=== PATIENT | male | born 1975 | race Caucasian/White ===

== ENCOUNTER 2019-10-23 13:11 | Outpatient (CLI) | payer OTHER, SELFPAY ==
--- NOTE | 2019-10-23 | USCV_ITS ---
Gilbert Eric Age: 44 Gender: M : 1975 Exam Date: 10/23/2019 15:53 Ordering Phys: Luke Cota MD Technologist: Hernandez Menezes [place] [facility] [facility] [place]ication: DIZZY Risk Factors: None Previous Vascular Surgery: None Right Brachial BP: / Left Brachial BP: / Right Left Velocity (cm/s) Spectral Plaque Velocity (cm/s) Spectral Plaque Syst/Diast Broadening Syst/Diast Broadening 67.30/ 16.50 Prox CCA 67.30 / 16.50 68.40/ 16.50 Mid CCA 60.60 / 13.20 59.50/ 15.40 Distal CCA 65.10 / 14.30 71.70/ 25.40 Prox ICA 62.80 / 22.10 70.60/ 22.10 Mid ICA 71.70 / 25.40 77.20/ 27.60 Distal ICA 66.20 / 19.80 91.50 ECA 66.20 1.13 ICA/CCA 1.07 Antegrade Vertebral Antegrade 33.80/ 6.80 cm/s 33.10/ 9.90 cm/s Tri Subclavian Tri 87.10 122.4 0 FINDINGS Comparison: none available. No significant elevation of systolic or diastolic velocities. Waveforms are normal. No significant amount of calcified plaque or intimal thickening identified. CONCLUSIONS Normal carotid doppler ultrasound. Dr. Miladys Loyola DO (Electronically Signed) Final Date: 24 October 2019 07:57 S
== END 2019-10-23 13:12 | disposition home or self-care (01) ==
LOC: RAD 13:16
PROVIDERS: PCP Family Medicine; Visit Provider Family Medicine
DX: I10 Essential (primary) hypertension (principal); I51.7 Cardiomegaly; R42 Dizziness and giddiness
CPT/HCPCS: 93880

== ENCOUNTER 2019-10-25 09:00 | Outpatient (CLI) | payer OTHER, SELFPAY ==
--- NOTE | 2019-10-25 13:43 | USCV_ITS ---
Gilbert Eric Age: 44 Gender: M : 1975 Exam Date: 10/25/2019 13:44 Ordering Phys: Luke Cota MD Technologist: Hernandez Menezes Exam Location: [facility] – [place] Indication: HNT HTN BP: 120 / 80 HR: 60 Rhythm: Sinus Technical Quality: Good MEASUREMENTS (Male / Female) Normal Values 2D ECHO LV Diastolic Diameter PLAX 4.8 cm 4.2 - 5.9 / 3.9 - 5.3 cm LV Systolic Diameter PLAX 4.0 cm IVS Diastolic Thickness 1.2 cm 0.6 - 1.0 / 0.6 - 0.9 cm IVS Systolic Thickness 1.3 cm LVPW Diastolic Thickness 1.2 cm 0.6 - 1.0 / 0.6 - 0.9 cm LVPW Systolic Thickness 1.2 cm LVOT Diameter 2.0 cm LV Ejection Fraction 2D Teich 33.7 % LV Ejection Fraction MOD 2C 66.6 % LV Ejection Fraction 2C AL 69.0 % LA Diameter 3.8 cm Aorta at Sinotubular Diameter 2.8 cm M-MODE LV Diastolic Diameter MM 5.3 cm 4.2 - 5.9 / 3.9 - 5.3 cm LV Systolic Diameter MM 3.3 cm LV Ejection Fraction MM Teich 67.6 % IVS Diastolic Thickness MM 1.0 cm 0.6 - 1.0 / 0.6 - 0.9 cm IVS Systolic Thickness MM 1.3 cm LVPW Diastolic Thickness MM 1.0 cm 0.6 - 1.0 / 0.6 - 0.9 cm LVPW Systolic Thickness MM 1.8 cm RV Diastolic Diameter MM 2.6 cm Aortic Annulus Diameter 3.6 cm LA Ao Ratio MM 1.0 MV E Point Septal Separation 1.6 cm DOPPLER AV Peak Velocity 121.0 cm/s LVOT Peak Velocity 94.0 cm/s AV Area Cont Eq vti 2.5 cm squared AV Area Cont Eq pk 2.6 cm squared MV E' Velocity 10.0 cm/s TR Peak Velocity 239.0 cm/s TR Peak Gradient 22.8 mmHg Right Atrial Pressure 3.0 mmHg Pulmonary Artery Systolic Pressu 25.8 mmHg PV Peak Velocity 94.0 cm/s FINDINGS Left Ventricle Normal left ventricular size and systolic function, EF 62 %. Mild left ventricular hypertrophy. No regional wall motion abnormalities. Right Ventricle The right ventricle is normal in size and function. Right Atrium The right atrium is normal in size. Left Atrium The left atrium is normal in size. Mitral Valve Structurally normal mitral valve without significant stenosis or prolapse. There is no mitral regurgitation. Aortic Valve Structurally normal aortic valve without significant sclerosis or stenosis. There is no aortic regurgitation. Tricuspid Valve Structurally normal tricuspid valve without significant stenosis or regurgitation. Pulmonary artery systolic pressure is normal. Pulmonic Valve Structurally normal pulmonic valve without significant stenosis. There is no pulmonic regurgitation. Pericardium Normal pericardium without effusion. Aorta Normal ascending aorta dimension. CONCLUSIONS Normal left ventricular size and systolic function, EF 62 %. Mild left ventricular hypertrophy. No regional wall motion abnormalities. No significant stenotic or regurgitant lesions No intracardiac shunt by color-flow Doppler examination There is no pericardial effusion. There are no intracardiac masses. No previous study is available for comparison. Dr Toma Davey MD FAC (Electronically Signed) Final Date: 26 October 2019 20:01 S MTDD
== END 2019-10-25 09:01 | disposition home or self-care (01) ==
LOC: RAD 10-28 12:28
PROVIDERS: PCP Family Medicine; Visit Provider Family Medicine
DX: I10 Essential (primary) hypertension (principal)
CPT/HCPCS: 93306

== ENCOUNTER 2020-03-09 07:21 | Emergency (ER) | payer OTHER, SELFPAY ==
[2020-03-09 07:22] VITALS: BP 127/87; PULSE 63; RESP 16; TEMP 36.8; O2SAT 98; BMI 25.7
--- NOTE | 2020-03-09 07:24 | ECG_ITS ---
[facility] Test Date: 2020-03-09 Pat Name: Eric Hunt Department: Room: Gender: Male Guest Experience Captain: : 1975 Requested By: Maximo Perez Order Number: [id number] Esposito MD: Eric Benedict M.D. Measurements Intervals [place] Rate: 57 P: 1 IL: 128 QRS: 30 QRSD: 94 T: 4 QT: 428 QTc: 418 Interpretive Statements SINUS BRADYCARDIA No previous ECG available for comparison Electronically Signed On 03-09-2020 16:39:33 CDT by Eric Benedict M.D. [id number]
--- NOTE | 2020-03-09 07:24 | W.ED.SYNCOPE ---
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 Was witnessed by the nurses who states that he went flaccid and had some jerking movements with sounds like he had a syncopal event. He states he has had this happen half a dozen or so times in the past. He is unsure what is causing. He denies any chest pain or headache. He denies any worsening improving factors. Associated symptoms: Deny abdominal pain, fever(s), headache(s) or nausea Review of Systems Const: Denies: fever(s), chills, body aches or change in appetite Eyes: Denies: blurry vision or eye discomfort ENMT: Denies: throat pain or dental pain Card: Reports: syncope Resp: Denies: dyspnea GI: Denies: abdominal pain, nausea, vomiting or diarrhea : Denies: dysuria Musc: Denies: neck pain or back pain Skin/Breast: Denies: rash Neuro: Denies: headache(s) Psych: Denies: depression Cedric/Lymph: Denies: easy bruising All/Imm: Denies: urticaria Physical Exam Const: COMMON NORMALS: no acute distress, patient oriented x3 and healthy appearing HENMT: COMMON NORMALS: normocephalic and atraumatic HEAD & SCALP: normocephalic and atraumatic Eye: COMMON NORMALS: Equal, round and reactive pupils present and EOMs intact bilaterally PUPIL: Yes Equal, round and reactive pupils present Neck/C-Spine: COMMON NORMALS: full ROM and supple Chest: COMMONS NORMALS: normal inspection of the chest and normal palpation of entire chest wall Resp: COMMON NORMALS: normal respiratory effort, No retractions, No use of accessory muscles and clear to auscultation bilaterally AUSCULTATION: clear to auscultation bilaterally Cardio: COMMON NORMALS: regular rate, regular rhythm and No murmurs present (Cardio) RATE: regular rate RHYTHM: regular rhythm GI: COMMON NORMALS: Normal to inspection, nondistended, normoactive bowel sounds present, Soft to palpation, non-tender and no masses PALPATION: Yes Soft to palpation Extremity: COMMON NORMALS: normal to inspection and full ROM Neuro: COMMON NORMALS: patient oriented x3, moves all extremities and no focal motor deficits Psych: COMMON NORMALS: mental status grossly normal, Normal thought process present and cooperative THOUGHT PROCESS: Normal thought process present Skin: COMMON NORMALS: no rashes or lesions noted and no wounds GENERAL SKIN EXAM: no rashes or lesions noted Course Vital Signs: Vital signs: Vital Signs Temperature 98.3 F 03/09/20 07:22 Pulse Rate 60 03/09/20 08:40 Respiratory Rate 14 03/09/20 08:40 Blood Pressure 111/79 03/09/20 08:40 Pulse Oximetry 97 03/09/20 08:40 MDM - Syncope MDM Narrative: Medical decision making narrative: Eric presents here with a likely syncopal event. Patient has no signs of a seizure. Patient's CT head and lab work here is all normal. Patient is stable for discharge and is to follow-up with primary care doctor in 3 to 5 days return if worsening. Lab Data: Labs: Lab Results 03/09/20 03/09/20 Range/Units 07:35 07:35 WBC 7.4 (4.0-10.0) 10^3/ uL RBC 4.66 (4.1-5.3) 10^6/u L Hgb 13.8 (11.7-16.6) g/dL Hct 43.6 (42.0-52.0) % MCV 93.6 (80-94) fL MCH 29.6 (28.0-34.0) pg MCHC 31.7 (30.0-36.0) g/dL RDW 12.1 (12.1-15.1) % Plt Count 234 (130-400) 10^3/c mm MPV 9.8 (7.4-10.4) fL Neut % (Auto) 44.5 % Lymph % (Auto) 45.4 % Pierce % (Auto) 5.8 % Eos % (Auto) 3.5 % Baso % (Auto) 0.5 % Neut # (Auto) 3.30 (1.8-7.7) 10^3/u L Lymph # (Auto) 3.4 (0.8-4.8) 10^3/u L Pierce # (Auto) 0.4 (0.2-0.9) 10^3/u L Eos # (Auto) 0.3 (0.0-0.8) 10^3/u L Baso # (Auto) 0.0 (0.0-0.1) 10^3/u L Nucleated RBC % (a uto) 0 % Nucleated RBCs # 0.0 /100WBC Sodium 141 (136-145) mmol/L Potassium 3.9 (3.5-5.1) mmol/L Chloride 106 (98-107) mmol/L Carbon Dioxide 27 (22-29) mmol/L Anion Gap 11.9 (5-19) BUN 16 (6-20) mg/dL Creatinine 0.9 (0.7-1.2) mg/dL GFR Calculation 90.8 (90-130) mL/min Glucose 134 H (65-115) mg/dL Calculated Osmolal ity 290 (285-295) mOsm/k g Calcium 9.7 (8.5-10.5) mg/dL Total Bilirubin 0.4 (0.15-1.2) mg/dL AST 24 (0-40) U/L ALT 23 (0-41) U/L Alkaline Phosphata se 53 (40-130) IU/L Total Protein 7.1 (6.6-8.7) g/dL Albumin 4.9 (3.5-5.2) g/dL Globulin 2.2 (1.3-4.6) g/dL Imaging Data^: CT Head: Radiologist's impression: [place] [address] CT Scan Report Signed Patient: Eric Hunt Unit #: [id number] : 1975 Age/Sex: 44 / M ADM Date: 03/09/20 Loc: ER Room/Bed: Attending Dr: Ordering Provider/Ordering MD: Maximo Perez MD Date of Service: 03/09/20 Procedure(s): CT head wo con* [id number] Accession Number(s): [id number] Report Number: [id number] PROCEDURE INFORMATION: Exam: CT Head Without Contrast Exam date and time: 03/09/2020 7:25 AM Age: 44 years old Clinical indication: Syncope and collapse TECHNIQUE: Imaging protocol: Computed tomography of the head without contrast. Radiation optimization: All CT scans at this facility use at least one of these dose optimization techniques: automated exposure control; mA and/or kV adjustment per patient size (includes targeted exams where dose is matched to clinical indication); or iterative reconstruction. COMPARISON: No relevant prior studies available. RADIATION DOSE METRICS: Total DLP (mGy-cm): 839.33 FINDINGS: Brain: No hemorrhage. No edema, mass effect or midline shift. Ventricles: No ventriculomegaly. Bones/joints: No acute fracture. Sinuses: No acute sinusitis. Mastoid air cells: No mastoid effusion. Soft tissues: Unremarkable. CT/CT head wo con* [id number] IMPRESSION: No acute intracranial abnormality. EKG Data^: EKG 1: Attestation: I personally reviewed and interpreted this EKG as follows: EKG interpretation date: 03/09/20 EKG interpretation time: 07:37 Interpretation: sinus winnie hr [address] or t wave abnormalities qrs 94 qtc 422 Discharge Plan Discharge Patient Disposition: Home, Self-Care Clinical Impression: Syncope Qualifiers: Syncope type: unspecified Qualified Code(s): R55 - Syncope and collapse Condition: Stable Prescriptions: No Action No Known Home Medications RF: 0 Discharge Orders: Discharge Order (Routine); Ordered 03/09/20 Ordered By: Maximo Perez Referrals: Luke Cota MD [Primary Care Provider] - 1-3 days Discharge Diet: Advance as tolerated Discharge Activity: Resume usual activity Patient Instructions: Syncope (ED) Discharge Date/Time: 03/09/20 08:41 Coding Level of Care Code ED Vice President Business Development for Chg Fwd Exam Comprehensive
[2020-03-09 07:40] LABS: Basophils % 0.5 %; Eosinophils # 0.3 10^3/uL (0.0-0.8); Eosinophils % 3.5 %; Hematocrit 43.6 % (42.0-52.0); Hemoglobin 13.8 g/dL (11.7-16.6); Lymphocytes # 3.4 10^3/uL (0.8-4.8); Lymphocytes % 45.4 %; Mean Corpuscular HGB Conc 31.7 g/dL (30.0-36.0); Mean Corpuscular Hemoglobin 29.6 pg (28.0-34.0); Mean Corpuscular Volume 93.6 fL (80-94); Mean Platelet Volume 9.8 fL (7.4-10.4); Monocytes # 0.4 10^3/uL (0.2-0.9); Monocytes % 5.8 %; Neutrophils % 44.5 %; Nucleated Red Blood Cells % 0 %; Platelet Count 234 10^3/cmm (130-400); Red Blood Count 4.66 10^6/uL (4.1-5.3); Red Cell Distribution Width 12.1 % (12.1-15.1); White Blood Count 7.4 10^3/uL (4.0-10.0)
[2020-03-09] MEDS: sodium chloride 0.9% 1,000 ML 999 ML IV (07:52)
[2020-03-09 07:55] LABS: Alanine Aminotransferase 23 U/L (0-41); Albumin Level 4.9 g/dL (3.5-5.2); Alkaline Phosphatase 53 IU/L (40-130); Anion Gap 11.9 (5-19); Aspartate Amino Transferase 24 U/L (0-40); Blood Urea Nitrogen 16 mg/dL (6-20); Calcium 9.7 mg/dL (8.5-10.5); Carbon Dioxide 27 mmol/L (22-29); Chloride 106 mmol/L (98-107); Creatinine Clr Calc Pharmacy 114.2303; Globulin 2.2 g/dL (1.3-4.6); Glomerular Filtration Rate 90.8 mL/min (90-130); Glucose 134 mg/dL (65-115); Osmolality Calculated 290 mOsm/kg (285-295); Potassium 3.9 mmol/L (3.5-5.1); Sodium 141 mmol/L (136-145); Total Bilirubin 0.4 mg/dL (0.15-1.2); Total Protein 7.1 g/dL (6.6-8.7)
[2020-03-09 08:40] VITALS: BP 111/79; PULSE 60; RESP 14; O2SAT 97
== END 2020-03-09 08:41 | disposition home or self-care (01) ==
PROVIDERS: Emergency Provider Emergency Medicine; PCP Family Medicine
DX: R55 Syncope and collapse (principal)
CPT/HCPCS: 12345; 70450; 80053; 85025; 93005; 96360; 99283; 99284; J7030

== ENCOUNTER → 2020-06-23 14:58 | Outpatient (BNVA) | payer OTHER, SELFPAY | PROVIDERS: PCP Family Medicine; Visit Provider Family Medicine | DX: Z11.59 Encounter for screening for other viral diseases (principal); Z20.828 Contact with and (suspected) exposure to other viral communicable diseases | CPT/HCPCS: 87635 ==

== ENCOUNTER → 2020-06-25 14:24 | Outpatient (BNVA) | payer OTHER, SELFPAY | PROVIDERS: PCP Family Medicine; Visit Provider Family Medicine | DX: Z11.59 Encounter for screening for other viral diseases (principal); Z20.828 Contact with and (suspected) exposure to other viral communicable diseases | CPT/HCPCS: 87635 ==

== ENCOUNTER 2020-07-09 07:12 | Day surgery (SDC) | payer OTHER, SELFPAY ==
[2020-07-08 15:19] VITALS: BMI 25.7
[2020-07-09 07:20] VITALS: BP 104/69; PULSE 93; RESP 18; TEMP 36.1; O2SAT 94
[2020-07-09] MEDS: sodium chloride 0.9% 1,000 ML 30 ML IV (07:20)
--- NOTE | 2020-07-09 07:32 | ANES.PREANE2 ---
Pre-Anesthetic Assessment Pre-Anesthetic Assessment: Height/Weight: Height 1.8 m Weight 83.915 kg Preop Diagnosis: R inguinal hernia Proposed Procedure: Operation Date: 07/09/20 07:30 Proposed Procedures p Inguinal Hernia Repair w/ Mesh(Right) - Shakeel Kelly MD Operation Date: 07/09/20 08:40 Proposed Procedures p Inguinal Hernia Repair w/ Mesh(Right) - Shakeel Kelly MD Was Beta Sebastian taken within 24 hours: N/A Last intake: Intake Last Liquid Date 07/09/20 Last Liquid Time 00:00 Last Solid Date 07/09/20 Last Solid Time 00:00 Social: Social History: No alcohol and No tobacco (quit years ago) Exam: Pre-Anes Outpt Exam: alert, oriented x 3, clear to auscultation bilaterally and regular rate & rhythm Airway: Submandibular: WNL Cervical ROM: WNL MP: 2 History/ROS: No significant history except as noted Pulmonary: Pulmonary: None reported CV/HEM: CV/HEM: None reported : : None reported Hepatic: Hepatic: None reported GI: GI: None reported Metabolic: Metabolic: None reported Musc/skel: Musc/skel: None reported Neuropsych: Neuropsych: None reported Anesthetic Plan: ASA status: 1 Anesthesia: Anesthesia Evaluation and MAC Risk of > 500 ml blood loss (7ml/kg in children): No Data Anesthesia Cardiac Studies: Holter Monitor 04/16/20
--- NOTE | 2020-07-09 08:28 | W.PM.OPSUD ---
Surgery/Procedure H&P Update DATE OF PROCEDURE: July 09, 2020 DATE H&P PERFORMED: 06/16/20 H&P UPDATE INFORMATION: No changes to prior documentation PREOP DIAGNOSIS: R inguinal hernia PLANNED PROCEDURE: Operation Date: 07/09/20 07:30 Proposed Procedures p Inguinal Hernia Repair w/ Mesh(Right) - Shakeel Kelly MD Operation Date: 07/09/20 08:40 Proposed Procedures p Inguinal Hernia Repair w/ Mesh(Right) - Shakeel Kelly MD
--- NOTE | 2020-07-09 08:59 | PM.OP ---
Operative Report Date of procedure: July 09, 2020 Pre-op Diagnosis: Right inguinal hernia. Post-op Diagnosis: Right direct inguinal hernia. Procedure Done: Repair of right inguinal hernia with mesh. Pathology: none sent Surgeon: Shakeel Kelly Anesthesia: MAC Estimated blood loss (mL): 5 Complications: None. Condition: stable Disposition: observation Procedure: The patient was brought to the operating room and was placed in a supine position on the operating room table. A monitored anesthetic was induced. The right inguinal region was prepped and draped in a sterile fashion. The patient had already shaven the area preoperatively. A combination of 1% lidocaine with 1:100,000 parts epinephrine and 0.5% bupivacaine was used for local anesthesia throughout the procedure. A transverse incision was carried out above the level of the pubic tubercle. Cautery was used to divide the subcutaneous tissue down to the external oblique aponeurosis, which was incised in parallel with its fibers over the inguinal canal. The spermatic cord was looped with a [place] drain. The patient was found to have a direct hernia defect in the floor of the inguinal canal exiting the medial aspect of the floor. The herniated contents were freed from the surrounding subcutaneous tissue and were then reduced. In addition, a very small amount of preperitoneal fat was found coming through the internal ring and was excised. A large mesh plug was used to hold the herniated tissue in a reduced position and the plug was secured using multiple sutures of 0 Prolene that were used to connect the conjoined area medially to the reflecting edge of Poupart's ligament laterally, essentially reconstructing the inguinal canal floor. The onlay patch was anchored at the tubercle with a suture of O Prolene and was laid along the new inguinal canal floor, allowing the cord structures to pass through the precut hole in the mesh. The 2 wings of the mesh were sewn to each other above the level of the internal ring with a suture of 0 Prolene. The external oblique aponeurosis was closed over the top of the cord using a running suture of 3-0 Vicryl. The wound was irrigated. The subcutaneous tissue was brought together with a simple suture of 3-0 Vicryl and the skin was approximated using a running subcuticular suture of 3-0 Vicryl. Benzoin and Steri-Strips were placed over the incision and a sterile bandage followed. The patient was taken to the recovery area in stable condition postoperatively.
[2020-07-09 09:23] VITALS: BP 118/75; PULSE 100; RESP 18; TEMP 36.1; O2SAT 97
[2020-07-09 09:24] VITALS: BP 102/75; PULSE 95; RESP 18; O2SAT 96
--- NOTE | 2020-07-09 20:13 | ANE.PACU2 ---
Inpatient post-anesthesia follow up: Airway intact: Yes Vital signs: Temperature 97 F Pulse Rate 95 Respiratory Rate 18 Blood Pressure 102/75 Pulse Oximetry 96 Oxygen Delivery Me thod Room Air Oxygen Flow Rate Fraction of Inspir ed Oxygen Hydration adequate: Yes Nausea and vomiting: No Pain level: 3 Mental status: Baseline
[2020-07-09 21:58] LABS: Quest SARS-CoV-2 RNA NOT DETECTED (NOT DETECTED)
== END 2020-07-09 10:01 | disposition home or self-care (01) ==
PROVIDERS: PCP Family Medicine; Visit Provider Surgery
PROC: (CPT 49505; principal; 2020-07-09 08:40)
DX: K40.90 Unilateral inguinal hernia, without obstruction or gangrene, not specified as recurrent (principal); Z87.891 Personal history of nicotine dependence
CPT/HCPCS: 49505; 12345; 87635; C1781; J0690; J1885; J2250; J2405; J2704; J3490; J7030

== ENCOUNTER 2020-07-20 10:14 | Outpatient (CLI) | payer OTHER, SELFPAY ==
--- NOTE | 2020-07-20 10:24 | CT_ITS ---
WS: [id number] CTA THORACIC AORTA WITH AND WITHOUT CONTRAST. HISTORY: SYNCOPE/TACHYCARDIA TECHNIQUE: CT imaging of the thorax is performed with and without contrast. After noncontrast imaging is performed, CT angiogram is performed during injection of Omnipaque 350; 95 mL IV.. Sagittal and c oronal reconstructions, sagittal and coronal MIP imaging is submitted. All CT scans at [facility] use at least one of these dose optimization techniques: automated exposure control; mA and/o r kV adjustment per patient size (includes targeted exams where dose is matched to clinical indicatio n); or iterative reconstruction. DLP: 1151.87 mGy.cm COMPARISON: None available. Normal size thoracic aorta. No dissection or aneurysm. LEFT common carotid artery arises from the bas e of the innominate. Pulmonary artery size is equal to the aorta. No proximal filling defects or pulm onary embolism. No pericardial or pleural effusion. Lungs are clear. No pneumonia. There is very mild enlargement of the LEFT heart chambers. LEFT ventricle is slightly globular in marybeth earance. No RIGHT heart strain. No adenopathy. Visualized portions of the thyroid in the supraclavicu lar soft tissues are normal. No adenopathy. Chest wall is normal. Early enhancement of the upper abdominal structures is negative. No osseous destruction. CT/CT angio chest [id number] IMPRESSION: 1. Normal thoracic aorta. No aneurysm or dissection. 2. Bovine arch. 3. Pulmonary artery is top normal size. 4. Mildly enlarged LEFT ventricle.
[2020-07-20] MEDS: iohexol 350 mg/mL 100 mL Btl IV (10:50)
== END 2020-07-20 10:15 | disposition home or self-care (01) ==
LOC: RADWPI 10:19
PROVIDERS: PCP Family Medicine; Visit Provider Family Medicine
DX: R55 Syncope and collapse (principal); R00.0 Tachycardia, unspecified; E03.9 Hypothyroidism, unspecified; I51.7 Cardiomegaly
CPT/HCPCS: 71275; Q9967

== ENCOUNTER 2021-07-08 12:14 | Emergency (ER) | payer OTHER, SELFPAY ==
[2021-07-08 12:28] VITALS: BP 120/80; PULSE 65; RESP 14; TEMP 36.4; O2SAT 98; BMI 25.7
--- NOTE | 2021-07-08 12:38 | W.ED.GENADLT ---
HPI - General Adult General: Chief complaint: General Medical Stated complaint: Blood Draw Time Seen by Provider: 07/08/21 12:26 Source: patient Mode of arrival: ambulatory Limitations: no limitations History of Present Illness: HPI narrative: Patient is a 46-year-old male who presents to ED today with a complaint of a sharps exposure/worker's comp injury. Patient is an RN at [employer] and was assisting during a surgical procedure when a sharp object that was being used during a spinal procedure poked his R index finger. tank builder supervisor aware and has gained source patient consent for labs. Patient here for employee health lab work. Tetanus is UTD. Onset (ago): day(s) (yesterday) Location: upper extremity (R index finger) Associated symptoms: Reports no associated symptoms Treatments prior to arrival: other (irrigation) Review of Systems General: Reports: Other (pt has no complaints at this time) Physical Exam Const: COMMON NORMALS: no acute distress, no limitations and alert GENERAL APPEARANCE: cooperative Extremity: COMMON NORMALS: full ROM and capillary refill normal NARRATIVE EXTREMITY EXAM: no redness, swelling, infection GENERAL: Yes normal exam except as noted Neuro: SENSORIUM/ORIENTATION: Yes alert Skin: NARRATIVE SKIN EXAM: normal skin exam Course Vital Signs: Vital signs: Vital Signs Temperature 97.6 F 07/08/21 12:28 Pulse Rate 65 07/08/21 12:28 Respiratory Rate 14 07/08/21 12:28 Blood Pressure 120/80 07/08/21 12:28 Pulse Oximetry 98 07/08/21 12:28 MDM - General Adult MDM Narrative: Medical decision making narrative: Tetanus is UTD. He will have employee health labs drawn. No alcohol or drug testing required. He will follow up with Worker's Comp. as instructed. Declines PEP for HIV. Discharge Plan Discharge Patient Disposition: Home Clinical Impression: Needlestick injury of finger Condition: Stable Prescriptions: No Action hydrocodone-acetaminophen 5-325 mg tablet 1 - 2 tab PO Q5H PRN (Reason: pain) Qty: 30 RF: 0 Discharge Orders: Discharge ED (Routine); Ordered 07/08/21 Ordered By: Janina Valladares Referrals: Luke Cota MD [Primary Care Provider] - Activity Restrictions/Additional Instructions: As we discussed you need to follow-up with Worker's Compensation as instructed. Coding Level of Care Code ED Tool Builder for Chg Fwd
[2021-07-08 13:57] LABS: HIV 1 & 2 Antibody Non-Reactive (Non-Reactiv); HIV 1 & 2 Antigen Non-Reactive (Non-Reactiv)
[2021-07-08 14:33] LABS: Hepatitis B Surface AB 351.4 (11.5-1000); Hepatitis B Surface Antigen Non-Reactive (Nonreactive); Hepatitis C Virus Antibody Non-Reactive (Nonreactive)
== END 2021-07-08 12:59 | disposition home or self-care (01) ==
PROVIDERS: Emergency Provider Physician Assistant; PCP Family Medicine
DX: S61.230A Puncture wound without foreign body of right index finger without damage to nail, initial encounter (principal); W46.0XXA Contact with hypodermic needle, initial encounter; Y92.239 Unspecified place in hospital as the place of occurrence of the external cause; Y99.0 Civilian activity done for income or pay
CPT/HCPCS: 36415; 86706; 86803; 87340; 87806; 99282

== ENCOUNTER → 2022-04-20 09:30 | Outpatient (BNVA) | payer OTHER, SELFPAY | PROVIDERS: PCP Family Medicine; Visit Provider Family Medicine | DX: Z20.822 Contact with and (suspected) exposure to COVID-19 (principal); J06.9 Acute upper respiratory infection, unspecified; J32.9 Chronic sinusitis, unspecified | CPT/HCPCS: 87426 ==

== ENCOUNTER → 2024-08-27 08:16 | Outpatient (BNVA) | payer OTHER, SELFPAY | PROVIDERS: PCP Family Medicine; Visit Provider Family Medicine | DX: R55 Syncope and collapse (principal); R53.1 Weakness | CPT/HCPCS: 82951; 82952; 84403 ==